=== PATIENT | male | born 1985 | race Asian ===

== ENCOUNTER 2016-10-11 09:58 | Outpatient (CLI) | payer OTHER ==
[2016-10-11] MEDS ORDERED: NACL ONE (12:42)
--- NOTE | 2016-10-11 14:00 | Cat Scan Report ---
CT of the abdomen and pelvis with IV and oral contrast. History: Right lower quadrant pain. Findings: The liver, spleen, pancreas, and gallbladder appear normal. There is a 3 mm calculus in the upper pole of the right kidney, but no hydronephrosis. Left kidney is normal. No ureteral dilatation or calculi. There no pelvic masses or abnormal fluid collections. No mesenteric inflammation is seen. There is no evidence of appendicitis. Impression: Right renal stone without hydronephrosis.
== END 2016-10-11 09:59 | disposition home or self-care (01) ==
LOC: CT 09:58
PROVIDERS: ATTEND Internal Medicine
DX: N20.0 Calculus of kidney (principal)
CPT/HCPCS: 74177; Q9967